=== PATIENT | male | born 1960 | race Caucasian/White ===

== ENCOUNTER 2022-05-25 12:52 | Observation (INO) ==
[2022-05-25] MEDS ORDERED: Acetaminophen IV 1 GM/100ML 1,000 MG/100 ML BAG IV ONE ×2 (13:30→16:36)
[2022-05-25] MEDS ORDERED: Lactated Ringers 1000 ml BAG 1,000 ML IV SCH (14:00)
[2022-05-25] MEDS ORDERED: Piperacillin/Tazobac ADVAN 3.375 GM in NS 0.9% 100 ml BAG 100 ML IV ONE (14:03)
[2022-05-25] MEDS ORDERED: Bupivacaine 0.25% w/EPI 10 ML SDV ONE (14:38)
[2022-05-25] MEDS ORDERED: Propofol 10 MG/ML 20 ML BTL ONE ×2 (14:39→16:22)
[2022-05-25] MEDS ORDERED: Lidocaine 2% PF 5 ML VIAL ONE (14:39)
[2022-05-25] MEDS ORDERED: fentaNYL 250 mcg/5 ml 50 MCG/ML 5 ml VIAL (250 MCG) ONE (14:39)
[2022-05-25] MEDS ORDERED: Rocuronium 50 mg VIAL 10 mg/ml 5 ml VIAL (50 mg) ONE (14:40)
[2022-05-25] MEDS ORDERED: Midazolam 2 mg/2 ml VIAL 1 mg/ml 2 ml VIAL (2 mg) ONE (14:43)
[2022-05-25] MEDS ORDERED: Zosyn per Pharmacy NOTE FOLLOW UP SCH (15:00)
[2022-05-25] MEDS ORDERED: Piperacillin/Tazobac 3.375 GM BAG ONE (15:54)
[2022-05-25] MEDS ORDERED: Dexamethasone IV 4 MG/ML VIAL 1 ml VIAL ONE (16:38)
[2022-05-25] MEDS ORDERED: Ondansetron 4 mg VIAL 2 MG/ML 2 ml VIAL ONE (16:38)
[2022-05-25] MEDS: ZOSYN 3.375 GM Q8H per EXTENDED INFUSION IV SCH (21:11)
[2022-05-26] MEDS ORDERED: oxyCODONE/Acetamin 5/325 mg TAB PO PRN (02:54)
[2022-05-26] MEDS ORDERED: Ondansetron 4 mg VIAL 2 MG/ML 2 ml VIAL IV PRN (02:55)
[2022-05-26] MEDS ORDERED: HYDROmorphone 0.5 MG/0.5 ML SYRINGE IV PRN (02:55)
[2022-05-26] MEDS: ZOSYN 3.375 GM Q8H per EXTENDED INFUSION IV SCH ×2 (04:19→12:31)
[2022-05-26] MEDS: D5W 1/2 NS 40 Meq KCL 1000 ml 1,000 ML IV SCH ×2 (10:25)
[2022-05-26 11:07] VITALS: BP 94/59
== END 2022-05-26 17:05 | disposition home or self-care (01) ==
LOC: SSU 12:52 → ED 12:52 → SSU 14:00 → SDS 14:00 → SSU 14:16
PROVIDERS: ADMIT Surgery; ATTEND Surgery